=== PATIENT | male | born 1980 | race Caucasian/White ===

== ENCOUNTER 2021-09-12 02:40 | Emergency (ER) | payer SELFPAY ==
[2021-09-12] MEDS ORDERED: Morphine 4 MG/ML VIAL ONE ×2 (03:59→08:53)
[2021-09-12] MEDS ORDERED: Dexamethasone 10 MG/ML VIAL ONE (04:00)
[2021-09-12] MEDS ORDERED: Ondansetron PF 4 MG/2 ML Vial ONE (04:00)
[2021-09-12] MEDS ORDERED: Lidocaine 1% (PF) 30 ML VIAL ONE (07:38)
[2021-09-12] MEDS ORDERED: Lidocaine 1% w/Epinephrine 1:100K 20 ML VIAL ONE (07:38)
[2021-09-12] MEDS ORDERED: Benzocaine 20% Spray 60 ML CAN ONE (07:57)
[2021-09-12] MEDS ORDERED: methylPREDNISolone Sod Succ/PF 125 MG/2 ML VIAL ONE (08:53)
== END 2021-09-12 10:20 | disposition home or self-care (01) ==
LOC: ERS 02:40
DX: J36 Peritonsillar abscess (principal)
CPT/HCPCS: 96374; 96375; 96376; J1100; J2001; J2270; J2405; J2930